=== PATIENT | male | born 1995 | race Caucasian/White ===

== ENCOUNTER 2017-01-26 09:09 | Emergency (ER) | payer SELFPAY ==
[~2017-01-26] VITALS: Ht 182.9 cm; Wt 90.5 kg
[2017-01-26] MEDS ORDERED: ALEVE220 M1 PO (09:17)
[2017-01-26] MEDS ORDERED: CLEOCIN HC150 MG/CAP PO (11:49)
[2017-01-26] MEDS ORDERED: PERCOCET 325 MG1 TA2 PO (11:49)
[2017-01-26 12:05] VITALS: BP 123/74
== END 2017-01-26 12:05 | disposition home or self-care (01) ==
LOC: ED 09:09
DX: K04.7 Periapical abscess without sinus (principal); K08.89 Other specified disorders of teeth and supporting structures; F17.200 Nicotine dependence, unspecified, uncomplicated
CPT/HCPCS: J1885